=== PATIENT | female | born 1995 | race Caucasian/White ===

== ENCOUNTER 2017-01-11 12:13 | Emergency (ER) | payer OTHER ==
[~2017-01-11] VITALS: Ht 165.1 cm; Wt 92.5 kg
[2017-01-11 13:21] VITALS: BP 118/73
== END 2017-01-11 13:31 | disposition home or self-care (01) ==
LOC: ED 12:13
DX: K52.9 Noninfective gastroenteritis and colitis, unspecified (principal)
CPT/HCPCS: J1885

== ENCOUNTER 2017-06-18 11:32 | Emergency (ER) | payer OTHER ==
[~2017-06-18] VITALS: Ht 165.1 cm; Wt 88.2 kg
[2017-06-18 11:44] VITALS: Ht 165.1 cm; Wt 88.2 kg
[2017-06-18 12:19] LABS: microscopic required? NO
[2017-06-18 12:42] LABS: UA SPECIFIC GRAVITY >=1.030 (1.005-1.035); urine erythrocyte NEGATIVE (NEGATIVE)
[2017-06-18 14:11] LABS: BASOPHIL % 0.1 % (0-2); PLATELET COUNT 288 x10^3mcL (130-400); RED CELL DISTRIBUTION WIDTH 13.7 % (11.5-14.5)
[2017-06-18 14:23] LABS: CALCIUM 7.9 mg/dL (8.5-10.1); CARBON DIOXIDE 23.1 mmol/L (21-32); CHLORIDE SERUM 107 mmol/L (98-107); CREATININE SERUM 0.5 mg/dL (0.6-1.0); GFR1 > 60 mL/min; GLUCOSE SERUM 80 mg/dL (74-106); POTASSIUM SERUM 3.6 mmol/L (3.5-5.1); SODIUM SERUM 141 mmol/L (136-145)
[2017-06-18 14:28] LABS: ALBUMIN 3.5 g/dL (3.4-5.0); ALKALINE PHOSPHATASE 65 U/L (46-116); ALT/SGPT 20 U/L (14-59); AST/SGOT 16 U/L (15-37); BILIRUBIN TOTAL 0.5 mg/dL (0.20-1.00); LIPASE 100 IU/L (73-393); TOTAL PROTEIN, SERUM 7.2 g/dL (6.4-8.2)
[2017-06-18 15:32] VITALS: BP 101/60
== END 2017-06-18 16:32 | disposition home or self-care (01) ==
LOC: ED 11:32
PROVIDERS: Emergency Medicine
DX: O46.91 Antepartum hemorrhage, unspecified, first trimester (principal); Z3A.00 Weeks of gestation of pregnancy not specified
CPT/HCPCS: 87491; 87591; J7030

== ENCOUNTER 2017-06-20 05:59 | Emergency (ER) | payer OTHER ==
[~2017-06-20] VITALS: Ht 165.1 cm; Wt 88.6 kg
[2017-06-20 06:04] VITALS: Ht 165.1 cm; Wt 88.6 kg
[2017-06-20 06:39] VITALS: BP 116/54
== END 2017-06-20 06:39 | disposition home or self-care (01) ==
LOC: ED 05:59
DX: O26.891 Other specified pregnancy related conditions, first trimester (principal); R10.9 Unspecified abdominal pain; Z3A.00 Weeks of gestation of pregnancy not specified

== ENCOUNTER 2019-03-31 08:37 | Emergency (ER) | payer OTHER ==
[~2019-03-31] VITALS: Ht 165.1 cm; Wt 94.8 kg
[2019-03-31 08:42] VITALS: Ht 165.1 cm; Wt 94.8 kg
[2019-03-31 12:54] VITALS: BP 110/61
== END 2019-03-31 12:54 | disposition home or self-care (01) ==
LOC: ED 08:37
DX: S62.312A Displaced fracture of base of third metacarpal bone, right hand, initial encounter for closed fracture (principal); S62.314A Displaced fracture of base of fourth metacarpal bone, right hand, initial encounter for closed fracture; S62.316A Displaced fracture of base of fifth metacarpal bone, right hand, initial encounter for closed fracture; S06.300D Unspecified focal traumatic brain injury without loss of consciousness, subsequent encounter; S01.112D Laceration without foreign body of left eyelid and periocular area, subsequent encounter; X58.XXXA Exposure to other specified factors, initial encounter; Y93.89 Activity, other specified; Y92.89 Other specified places as the place of occurrence of the external cause

== ENCOUNTER 2019-05-05 16:20 | Emergency (ER) | payer OTHER ==
[~2019-05-05] VITALS: Ht 165.1 cm; Wt 96.6 kg
[2019-05-05 16:24] VITALS: Ht 165.1 cm; Wt 96.6 kg
[2019-05-06 00:23] VITALS: BP 125/79
== END 2019-05-06 00:23 | disposition home or self-care (01) ==
LOC: ED 16:20
DX: N93.8 Other specified abnormal uterine and vaginal bleeding (principal)
CPT/HCPCS: 87491; 87591; J1885

== ENCOUNTER 2019-11-23 19:14 | Emergency (ER) | payer OTHER ==
[~2019-11-23] VITALS: Ht 165.1 cm; Wt 90.8 kg
[2019-11-23 21:12] LABS: microscopic required? NO
[2019-11-23 21:38] LABS: UA SPECIFIC GRAVITY >=1.030 (1.005-1.035); urine erythrocyte NEGATIVE (NEGATIVE)
[2019-11-23 21:53] LABS: AMPHETAMINE QUAL UR NONE DETECTED (See below)
[2019-11-24 04:36] LABS: BASOPHIL % 0.4 % (0-2); PLATELET COUNT 327 x10^3mcL (130-400); RED CELL DISTRIBUTION WIDTH 12.9 % (11.5-14.5)
[2019-11-24 04:48] LABS: CALCIUM 8.7 mg/dL (8.5-10.1); CARBON DIOXIDE 24.9 mmol/L (21-32); CHLORIDE SERUM 103 mmol/L (98-107); CREATININE SERUM 0.6 mg/dL (0.6-1.0); GFR1 > 60 mL/min; GLUCOSE SERUM 87 mg/dL (74-106); POTASSIUM SERUM 3.2 mmol/L (3.5-5.1); SODIUM SERUM 141 mmol/L (136-145)
[2019-11-24 04:52] LABS: ALKALINE PHOSPHATASE 59 U/L (46-116); ALT/SGPT 24 U/L (14-59); AST/SGOT 20 U/L (15-37); BILIRUBIN TOTAL 0.8 mg/dL (0.20-1.00); TOTAL PROTEIN, SERUM 7.6 g/dL (6.4-8.2)
--- NOTE | 2019-11-25 01:06 | NUR ---
Monitoring patient status with bed placement. No beds at this time with the previous facilities reached. Will keep ER informed of any udates
[2019-11-25 18:02] VITALS: BP 132/68
== END 2019-11-25 18:03 ==
LOC: ED 19:14
PROVIDERS: Emergency Medicine
DX: R45.851 Suicidal ideations (principal)
CPT/HCPCS: G0480; U0003-CS

== ENCOUNTER 2019-12-02 20:02 | Emergency (ER) | payer OTHER ==
[~2019-12-02] VITALS: Ht 165.1 cm; Wt 90.7 kg
[2019-12-02 20:08] VITALS: Ht 165.1 cm; Wt 90.7 kg
[2019-12-02 21:46] VITALS: BP 118/80
== END 2019-12-02 21:46 | disposition home or self-care (01) ==
LOC: ED 20:02
DX: G25.71 Drug induced akathisia (principal); T50.995A Adverse effect of other drugs, medicaments and biological substances, initial encounter; Y92.89 Other specified places as the place of occurrence of the external cause
CPT/HCPCS: Q0163

== ENCOUNTER 2019-12-03 14:33 | Emergency (ER) | payer OTHER ==
[~2019-12-03] VITALS: Ht 165.1 cm; Wt 90.3 kg
== END 2019-12-03 15:32 | disposition home or self-care (01) ==
LOC: ED 14:33
DX: F41.9 Anxiety disorder, unspecified (principal); R29.898 Other symptoms and signs involving the musculoskeletal system

== ENCOUNTER 2019-12-03 17:50 | Emergency (ER) | payer OTHER ==
[~2019-12-03] VITALS: Ht 165.1 cm; Wt 90.7 kg
[2019-12-03 19:33] VITALS: BP 123/90
== END 2019-12-03 19:33 | disposition home or self-care (01) ==
LOC: ED 17:50
DX: F41.9 Anxiety disorder, unspecified (principal)

== ENCOUNTER 2019-12-10 00:17 | Emergency (ER) | payer OTHER ==
[~2019-12-10] VITALS: Ht 165.1 cm; Wt 88.9 kg
[2019-12-10 00:29] VITALS: BP 108/78; Ht 165.1 cm; Wt 88.9 kg
== END 2019-12-10 00:39 | disposition left against medical advice (07) ==
LOC: ED 00:17
DX: Z53.21 Procedure and treatment not carried out due to patient leaving prior to being seen by health care provider (principal)

== ENCOUNTER 2020-01-02 13:38 | Emergency (ER) | payer OTHER ==
[~2020-01-02] VITALS: Ht 165.1 cm; Wt 89.4 kg
[2020-01-02 13:48] VITALS: BP 123/86; Ht 165.1 cm; Wt 89.4 kg
[2020-01-02 14:25] LABS: microscopic required? YES; urine erythrocyte 3+ (NEGATIVE)
== END 2020-01-02 15:30 | disposition left against medical advice (07) ==
LOC: ED 13:38
DX: Z53.21 Procedure and treatment not carried out due to patient leaving prior to being seen by health care provider (principal)

== ENCOUNTER 2020-01-05 10:29 | Emergency (ER) | payer OTHER ==
[~2020-01-05] VITALS: Ht 165.1 cm; Wt 90.3 kg
[2020-01-05 10:40] VITALS: Ht 165.1 cm; Wt 90.3 kg
[2020-01-05 11:48] LABS: CARBON DIOXIDE 27.3 mmol/L (21-32); CHLORIDE SERUM 103 mmol/L (98-107); CREATININE SERUM 0.5 mg/dL (0.6-1.0); GFR1 > 60 mL/min; GLUCOSE SERUM 92 mg/dL (74-106); POTASSIUM SERUM 3.7 mmol/L (3.5-5.1); SODIUM SERUM 138 mmol/L (136-145)
[2020-01-05 11:53] LABS: BASOPHIL % 0.3 % (0-2); PLATELET COUNT 264 x10^3mcL (130-400)
[2020-01-05 11:55] LABS: ALBUMIN 3.6 g/dL (3.4-5.0); ALKALINE PHOSPHATASE 68 U/L (46-116); ALT/SGPT 18 U/L (14-59); AST/SGOT 20 U/L (15-37); BILIRUBIN TOTAL 0.4 mg/dL (0.20-1.00); LIPASE 70 IU/L (73-393); TOTAL PROTEIN, SERUM 7.5 g/dL (6.4-8.2)
[2020-01-05 12:28] VITALS: BP 124/76
== END 2020-01-05 12:28 | disposition home or self-care (01) ==
LOC: ED 10:29
PROVIDERS: Emergency Medicine
DX: K29.70 Gastritis, unspecified, without bleeding (principal); F41.9 Anxiety disorder, unspecified

== ENCOUNTER 2020-01-07 12:36 | Emergency (ER) | payer OTHER ==
[~2020-01-07] VITALS: Ht 165.1 cm; Wt 88.9 kg
[2020-01-07 12:40] VITALS: Ht 165.1 cm; Wt 88.9 kg
[2020-01-07 16:05] VITALS: BP 116/63
== END 2020-01-07 16:05 | disposition home or self-care (01) ==
LOC: ED 12:36
DX: B00.9 Herpesviral infection, unspecified (principal); N34.2 Other urethritis
CPT/HCPCS: 87491; 87591; J0696

== ENCOUNTER 2020-01-15 09:50 | Emergency (ER) | payer OTHER ==
[~2020-01-15] VITALS: Ht 165.1 cm; Wt 91.2 kg
[2020-01-15 09:58] VITALS: Ht 165.1 cm; Wt 91.2 kg
[2020-01-15 11:59] VITALS: BP 125/69
== END 2020-01-15 11:59 | disposition home or self-care (01) ==
LOC: ED 09:50
DX: Z13.9 Encounter for screening, unspecified (principal); Z98.890 Other specified postprocedural states

== ENCOUNTER 2020-01-30 21:08 | Emergency (ER) | payer OTHER ==
[~2020-01-30] VITALS: Ht 165.1 cm; Wt 91.9 kg
[2020-01-30 21:20] VITALS: Ht 165.1 cm; Wt 91.9 kg
[2020-01-30 23:54] LABS: BASOPHIL % 0.4 % (0-2); PLATELET COUNT 278 x10^3mcL (130-400); RED CELL DISTRIBUTION WIDTH 13.7 % (11.5-14.5)
[2020-01-31 00:08] LABS: CALCIUM 9.3 mg/dL (8.5-10.1); CARBON DIOXIDE 27.9 mmol/L (21-32); CHLORIDE SERUM 105 mmol/L (98-107); CREATININE SERUM 0.8 mg/dL (0.6-1.0); GFR1 > 60 mL/min; GLUCOSE SERUM 94 mg/dL (74-106); SODIUM SERUM 141 mmol/L (136-145)
[2020-01-31 01:04] VITALS: BP 101/71
== END 2020-01-31 01:04 | disposition home or self-care (01) ==
LOC: ED 21:08
PROVIDERS: Emergency Medicine
DX: N39.0 Urinary tract infection, site not specified (principal); R11.0 Nausea

== ENCOUNTER 2020-03-15 20:16 | Emergency (ER) | payer OTHER ==
[~2020-03-15] VITALS: Ht 165.1 cm; Wt 93.4 kg
[2020-03-15 20:47] VITALS: BP 112/80; Ht 165.1 cm; Wt 93.4 kg
== END 2020-03-15 22:31 | disposition home or self-care (01) ==
LOC: ED 20:16
DX: O99.342 Other mental disorders complicating pregnancy, second trimester (principal); F41.9 Anxiety disorder, unspecified; R51.9 Headache, unspecified; Z3A.17 17 weeks gestation of pregnancy

== ENCOUNTER 2020-04-15 18:40 | Emergency (ER) | payer OTHER ==
[~2020-04-15] VITALS: Ht 165.1 cm; Wt 93.4 kg
[2020-04-15 19:16] VITALS: Ht 165.1 cm; Wt 93.4 kg
[2020-04-15 21:03] LABS: UA SPECIFIC GRAVITY 1.025 (1.005-1.035); microscopic required? YES; urine erythrocyte 2+ (NEGATIVE)
[2020-04-15 21:27] LABS: BASOPHIL % 0.3 % (0.2-1.3); PLATELET COUNT 352 x10^3mcL (179-408); RED CELL DISTRIBUTION WIDTH 13.1 % (12.3-17.7)
[2020-04-15 22:55] VITALS: BP 111/64
== END 2020-04-15 22:55 | disposition home or self-care (01) ==
LOC: ED 18:40
PROVIDERS: Emergency Medicine
DX: O20.0 Threatened abortion (principal); Z3A.01 Less than 8 weeks gestation of pregnancy

== ENCOUNTER 2020-05-26 09:49 | Emergency (ER) | payer OTHER ==
[~2020-05-26] VITALS: Ht 165.1 cm; Wt 90.7 kg
[2020-05-26 10:01] VITALS: Ht 165.1 cm; Wt 90.7 kg
[2020-05-26 11:18] LABS: BASOPHIL % 0.5 % (0.2-1.3); PLATELET COUNT 313 x10^3mcL (179-408)
[2020-05-26 11:38] LABS: UA SPECIFIC GRAVITY 1.025 (1.005-1.035); microscopic required? YES; urine erythrocyte NEGATIVE (NEGATIVE)
[2020-05-26 11:53] LABS: CALCIUM 9.1 mg/dL (8.5-10.1); CARBON DIOXIDE 24.3 mmol/L (21-32); CHLORIDE SERUM 103 mmol/L (98-107); CREATININE SERUM 0.6 mg/dL (0.6-1.0); GFR1 > 60 mL/min; GLUCOSE SERUM 84 mg/dL (74-106); MAGNESIUM 2.1 mg/dL (1.8-2.4); POTASSIUM SERUM 3.5 mmol/L (3.5-5.1); SODIUM SERUM 137 mmol/L (136-145)
[2020-05-26 13:48] VITALS: BP 101/61
== END 2020-05-26 13:48 | disposition home or self-care (01) ==
LOC: ED 09:49
PROVIDERS: Emergency Medicine
DX: O26.891 Other specified pregnancy related conditions, first trimester (principal); R11.2 Nausea with vomiting, unspecified; Z3A.11 11 weeks gestation of pregnancy
CPT/HCPCS: J7030

== ENCOUNTER 2020-06-07 17:27 | Emergency (ER) | payer OTHER ==
[~2020-06-07] VITALS: Ht 152.4 cm; Wt 89.8 kg
[2020-06-07 17:47] VITALS: Ht 152.4 cm; Wt 89.8 kg
[2020-06-07 18:19] LABS: BASOPHIL % 0.3 % (0.2-1.3); PLATELET COUNT 306 x10^3mcL (179-408); RED CELL DISTRIBUTION WIDTH 12.9 % (12.3-17.7)
[2020-06-07 18:24] LABS: CALCIUM 8.6 mg/dL (8.5-10.1); CARBON DIOXIDE 24.6 mmol/L (21-32); CHLORIDE SERUM 102 mmol/L (98-107); CREATININE SERUM 0.6 mg/dL (0.6-1.0); GFR1 > 60 mL/min; GLUCOSE SERUM 87 mg/dL (74-106); POTASSIUM SERUM 3.5 mmol/L (3.5-5.1); SODIUM SERUM 138 mmol/L (136-145)
[2020-06-07 19:53] VITALS: BP 117/78
== END 2020-06-07 19:53 | disposition home or self-care (01) ==
LOC: ED 17:27
PROVIDERS: Emergency Medicine
DX: O26.891 Other specified pregnancy related conditions, first trimester (principal); R11.2 Nausea with vomiting, unspecified; R42 Dizziness and giddiness; E86.0 Dehydration; Z3A.14 14 weeks gestation of pregnancy
CPT/HCPCS: J2405